=== PATIENT | female | born 1950 | race Asian ===

== ENCOUNTER → 2018-04-29 | Outpatient (CLI) | payer MEDICARE, OTHER ==
[~2018-04-29] MED LIST: ALBU8HFA4 IH; BECL8.7A5 IH; MECL12.585 PO; NYST100026 PO; OMEP20 PO; PRED20 PO
== END | disposition home or self-care (01) ==
LOC: RADPV 11:41
PROVIDERS: ATTEND Internal Medicine
DX: J43.9 Emphysema, unspecified (principal); J98.4 Other disorders of lung; R63.4 Abnormal weight loss